=== PATIENT | female | born 2005 | race Two or more races ===

== ENCOUNTER → 2023-12-26 | Emergency (ER) | payer OTHER ==
[~2023-12-26] VITALS: Ht 154.9 cm; Wt 63.5 kg
[2023-12-26 11:17] LABS: URINE APPEARANCE Cloudy; URINE BILIRRUBIN Negative (NEGATIVE); URINE BLOOD Negative; URINE COLOR Yellow; URINE GLUCOSE Negative (NEGATIVE); URINE LEUKOCYTE Trace; URINE NITRATE Negative; URINE PROTEIN Trace (NEGATIVE)
[2023-12-26 11:21] LABS: URINE BACTERIA 2993.5 uL (0.0-1933); URINE EPITHELIAL CELLS 158.7 uL (0.0-38.8); URINE RBC 22.9 uL (0.0-20.8); URINE WBC 16.3 uL (0.0-23.2)
[2023-12-26 11:28] LABS: HEMATOCRIT 38.9 % (36.0-45.00); HEMOGLOBIN 13.5 g/dL (12.0-15.00); MEAN CORPUSCULAR HEMOGLOBIN 32.2 pg (27.00-32.0); MEAN CORPUSCULAR HGB CONC 34.6 g/dl (32.0-36.0); PLATELET COUNT 235 K/uL (150-450); RED BLOOD COUNT 4.18 M/uL (4.00-6.00); RED CELL DISTRIBUTION WIDTH 13.9 % (11.5-14.5)
[2023-12-26 11:51] LABS: CALCIUM 8.8 mg/dL (8.5-10.1); CREATININE SERUM 0.51 mg/dL (0.55-1.02); GFR 153.74; POTASSIUM 3.84 mEq/L (3.5-5.1)
== END | disposition home or self-care (01) ==
LOC: ER 09:23
PROVIDERS: Emergency Medicine
DX: O26.822 Pregnancy related peripheral neuritis, second trimester (principal); R10.2 Pelvic and perineal pain; Z3A.22 22 weeks gestation of pregnancy

== ENCOUNTER 2024-03-19 12:53 | Outpatient (CLI) | payer OTHER | END 2024-03-19 13:31 | disposition home or self-care (01) | LOC: NST 12:53 | PROVIDERS: ATTEND General Practice | DX: Z34.83 Encounter for supervision of other normal pregnancy, third trimester (principal) ==